=== PATIENT | male | born 2000 | race Caucasian/White ===

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

== ENCOUNTER → 2020-07-02 | Outpatient (CLI) | payer BC, SELFPAY | END | disposition home or self-care (01) | LOC: LABSPEC 17:31 | PROVIDERS: PCP Physician Assistant | CPT/HCPCS: 87635; C9803; U0003 ==